=== PATIENT | male | born 1980 ===

== ENCOUNTER 2017-03-16 16:37 | Emergency (ER) | payer OTHER ==
[2017-03-16 17:07] VITALS: BP 138/76; PULSE 85; RESP 20; TEMP 97.2; O2SAT 99
[2017-03-16] MEDS ORDERED: ALBUTEROL/IPRATROPIUM 1 VIAL SOL ONE (17:07)
[2017-03-16] MEDS ORDERED: ALBUTEROL/IPRATROPIUM 1 VIAL SOL INH ONE (17:16)
[2017-03-16] MEDS ORDERED: PREDNISONE 5 MG TAB PO ONE (17:31)
[2017-03-16] MEDS ORDERED: PREDNISONE 20 MG TAB PO ONE (17:49)
[2017-03-16] MEDS ORDERED: PREDNISONE 20 MG TAB ONE (17:55)
== END 2017-03-16 17:59 | disposition home or self-care (01) | DRG 153 ==
LOC: ED 16:37
DX: J06.9 Acute upper respiratory infection, unspecified (principal)
CPT/HCPCS: 87430; 99283; J7620